=== PATIENT | female | born 1935 | race Caucasian/White ===

== ENCOUNTER → 2016-05-31 | Outpatient (CLI) | payer OTHER | LOC: FCPNEURO 23:20 | PROVIDERS: ATTEND Student in an Organized Health Care Education/Training Program | DX: G47.33 Obstructive sleep apnea (adult) (pediatric) (principal) ==

== ENCOUNTER → 2017-06-19 | Outpatient (CLI) | payer OTHER | LOC: BMCIMAGING 10:20 | PROVIDERS: ATTEND Internal Medicine | DX: R05 Cough (principal) ==

== ENCOUNTER 2018-05-24 15:29 | Observation (INO) | payer OTHER ==
--- NOTE | 2018-05-24 16:41 | EDPHY ---
H & P Time Seen by Provider: 05/24/18 16:40 HPI/ROS: CHIEF COMPLAINT: Abdominal bloating and skin rash HISTORY OF PRESENT ILLNESS: Patient had symptoms with digestive issues and diarrhea for the past 20 years. She did see her naturopathic doctor treated some of her symptoms of the ribs this past February and March and she felt well until May 12 when she had abdominal bloating and swelling and fatigue. A new year's Dana she had a single episode of nausea vomiting very fatigued and then saw her vp analytics this past Sunday for decreased appetite and worse abdominal bloating and a week of dark urine. She presents today because she called her doctor about the symptoms and they asked her to come to the emergency department. Her bloating is associated with constipation, the skin rash is very itchy and she has had to take Tylenol couple of times in the past week but only 1 pill at a time. Symptoms moderate. REVIEW OF SYSTEMS: Eye: no change in vision ENT: Eye surgery for her tear duct this last week on the of general anesthesia Cardiac: no chest pain or syncope Pulmonary: no cough or SOB Abdomen: HPI Musculoskeletal: no back pain Skin: HPI Neuro: no headache Constitutional: no fever : Dark urine but no hematuria or dysuria A comprehensive 10 point review of systems is otherwise negative aside from elements mentioned in the history of present illness. PAST MEDICAL HISTORY: Includes cardiac ablation in 2013, sciatica with lumbar laminectomy, left hip replacement, hypertension Social history: Occasional alcohol General Appearance: Alert and conversant, cooperative. Eyes: Icteric. ENT, Mouth: Normal mucous membranes. Respiratory: Normal respiratory effort, breath sounds equal, lungs are clear to auscultation. Cardiovascular: Regular rate and rhythm. Gastrointestinal: Epigastric and right upper quadrant tenderness. Neurological: Alert, face symmetric, normal motor and sensory in extremities. Skin: Jaundiced. Musculoskeletal: No peripheral edema. Psychiatric: Not agitated. Emergency Department course/MDM: Patient presents with jaundice and icterus. Plan for labs to include LFTs and protime and Tylenol, CT scanning abdomen and pelvis discussed and consented. 1826: normal CT abdomen pelvis per Thom. 1899: results discussed with patient and Dr. Matthews. Admission recommended for further workup of jaundice with possible biliary obstruction, patient consents. Ultrasound in progress, hospitalist will arrange GI consultation. Smoking Status: Never smoked Constitutional: Initial Vital Signs Temperature (C) 36.7 C 05/24/18 15:43 Heart Rate 73 05/24/18 15:43 Respiratory Rate 16 05/24/18 15:43 Blood Pressure 141/95 H 05/24/18 15:43 O2 Sat (%) 97 05/24/18 15:43 O2 Delivery Mode Room Air Allergies/Adverse Reactions: gluten Allergy (Verified 05/24/18 15:42) peanut Allergy (Verified 05/24/18 15:42) soy Allergy (Verified 05/24/18 15:42) Home Medications: Medication Instructions Recorded Herbals/Supplements -Info Only 1 each PO AD 08/03/13 Aspirin EC [Aspirin EC 325 mg (*)] 325 mg PO DAILY PRN 05/24/18 Ibuprofen [Motrin (*)] 1 - 2 tab PO PRN PRN 05/24/18 Medical Decision Making - Diagnostics Imaging Results: Imaging Impressions Abdomen CT 05/24/18 17:42 Impression: 1. No evidence for a mass obstructing the biliary system or common bile duct. Left and right hepatic cysts. 2. Possible nonspecific wall thickening in the antrum of the stomach. Consider endoscopy for further evaluation, if clinically warranted 3. 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 Tarlov cysts in the sacrum. 4. Other chronic findings, as above. Results called and discussed with Aris Llanos M.D., on May 24, 2018 at 1835. E:amm Abdomen Ultrasound 05/24/18 18:54 Impression: Question subtle adenomyomatosis of the gallbladder. No evidence for cholecystitis or cholelithiasis. No evidence for intrahepatic or extrahepatic biliary ductal dilatation. Hepatic cysts. Results were called and discussed with Dr. Aris Llanos on 05/24/2018, 19:52. Imaging: Discussed imaging studies w/ yardage caller Radiologist Differential Diagnosis: Differential considered including but not limited to pancreatitis, cholangitis, pancreatic tumor, common duct stone - Data Points Laboratory Results: Laboratory Results 05/24/18 17:10 05/24/18 17:10 05/24/18 05/24/18 05/24/18 17:36 17:10 17:10 WBC RBC Hgb POC Hgb 15.6 gm/dL gm/dL (12.6-16.3) Hct POC Hct 46 % % (38-47) MCV MCH MCHC RDW Plt Count MPV Neut % (Auto) Lymph % (Auto) Clare % (Auto) Eos % (Auto) Baso % (Auto) Nucleat RBC Rel Count Absolute Neuts (auto) Absolute Lymphs (auto) Absolute Monos (auto) Absolute Eos (auto) Absolute Basos (auto) Absolute Nucleated RBC Immature Gran % Immature Gran # PT INR POC Sodium 142 mEq/L mEq/L (135-145) Sodium 137 mEq/L mEq/L REJ (135-145) POC Potassium 4.0 mEq/L mEq/L (3.3-5.0) Potassium 4.0 mEq/L mEq/L Not Reported (3.5-5.2) POC Chloride 105 mEq/L mEq/L (97-110) Chloride 105 mEq/L mEq/L Not Reported (97-110) Carbon Dioxide 25 mEq/l mEq/l Not Reported (22-31) Anion Gap 7 mEq/L mEq/L Not Reported (6-14) POC BUN 14 mg/dL mg/dL (7-23) BUN 14 mg/dL mg/dL Not Reported (7-23) Creatinine 0.7 mg/dL mg/dL Not Reported (0.6-1.0) POC Creatinine 0.7 mg/dL mg/dL (0.6-1.0) Estimated GFR > 60 Not Reported Glucose 98 mg/dL mg/dL Not Reported (70-100) POC Glucose 97 mg/dL mg/dL (70-100) Calcium 9.6 mg/dL mg/dL Not Reported (8.5-10.4) Total Bilirubin 12.2 mg/dL H mg/dL Not Reported (0.1-1.4) Conjugated Bilirubin 10.3 mg/dL H mg/dL Not Reported (0.0-0.5) Unconjugated Bilirubin 1.9 mg/dL H mg/dL Not Reported (0.0-1.1) Icterus Index 7 AST 117 IU/L H IU/L Not Reported (14-46) ALT 209 IU/L H IU/L Not Reported (9-52) Alkaline Phosphatase 493 IU/L H IU/L Not Reported (38-126) Total Protein 7.5 g/dL g/dL Not Reported (6.3-8.2) Albumin 4.1 g/dL g/dL Not Reported (3.5-5.0) Lipase 125 IU/L IU/L Not Reported (23-300) Urine Color Urine Appearance Urine pH Ur Specific [place] Urine Protein Urine Ketones Urine Blood Urine Nitrate Urine Bilirubin Urine Urobilinogen Ur Leukocyte Esterase Urine Glucose Acetaminophen < 10 mcg/mL L mcg/mL Not Reported (-) 05/24/18 05/24/18 05/24/18 17:10 17:10 15:46 WBC 5.81 10^3/uL 10^3/uL (3.80-9.50) RBC 5.02 10^6/uL 10^6/uL (4.18-5.33) Hgb 13.5 g/dL g/dL (12.6-16.3) POC Hgb Hct 39.6 % % (38.0-47.0) POC Hct MCV 78.9 fL L fL (81.5-99.8) MCH 26.9 pg L pg (27.9-34.1) MCHC 34.1 g/dL g/dL (32.4-36.7) RDW 16.7 % H % (11.5-15.2) Plt Count 298 10^3/uL 10^3/uL (150-400) MPV 11.9 fL H fL (8.7-11.7) Neut % (Auto) 52.7 % % (39.3-74.2) Lymph % (Auto) 22.7 % % (15.0-45.0) Clare % (Auto) 16.2 % H % (4.5-13.0) Eos % (Auto) 6.4 % % (0.6-7.6) Baso % (Auto) 1.5 % % (0.3-1.7) Nucleat RBC Rel Count 0.0 % % (0.0-0.2) Absolute Neuts (auto) 3.06 10^3/uL 10^3/uL (1.70-6.50) Absolute Lymphs (auto) 1.32 10^3/uL 10^3/uL (1.00-3.00) Absolute Monos (auto) 0.94 10^3/uL H 10^3/uL (0.30-0.80) Absolute Eos (auto) 0.37 10^3/uL 10^3/uL (0.03-0.40) Absolute Basos (auto) 0.09 10^3/uL 10^3/uL (0.02-0.10) Absolute Nucleated RBC 0.00 10^3/uL 10^3/uL (0-0.01) Immature Gran % 0.5 % % (0.0-1.1) Immature Gran # 0.03 10^3/uL 10^3/uL (0.00-0.10) PT 13.4 SEC SEC (12.0-15.0) INR 1.00 (0.83-1.16) POC Sodium Sodium POC Potassium Potassium POC Chloride Chloride Carbon Dioxide Anion Gap POC BUN BUN Creatinine POC Creatinine Estimated GFR Glucose POC Glucose Calcium Total Bilirubin Conjugated Bilirubin Unconjugated Bilirubin Icterus Index AST ALT Alkaline Phosphatase Total Protein Albumin Lipase Urine Color AKILA Urine Appearance CLEAR Urine pH 5.0 (5.0-7.5) Ur Specific [place] 1.011 (1.002-1.030) Urine Protein NEGATIVE (NEGATIVE) Urine Ketones NEGATIVE (NEGATIVE) Urine Blood NEGATIVE (NEGATIVE) Urine Nitrate NEGATIVE (NEGATIVE) Urine Bilirubin NEGATIVE (NEGATIVE) Urine Urobilinogen 2.0 EU H EU (0.2-1.0) Ur Leukocyte Esterase NEGATIVE (NEGATIVE) Urine Glucose NEGATIVE (NEGATIVE) Acetaminophen Point of Care Test Results: Chemistry 05/24/18 17:36 POC Sodium 142 mEq/L mEq/L (135-145) POC Potassium 4.0 mEq/L mEq/L (3.3-5.0) POC Chloride 105 mEq/L mEq/L (97-110) POC BUN 14 mg/dL mg/dL (7-23) POC Creatinine 0.7 mg/dL mg/dL (0.6-1.0) POC Glucose 97 mg/dL mg/dL (70-100) ISTAT H&H 05/24/18 17:36 POC Hgb 15.6 gm/dL gm/dL (12.6-16.3) POC Hct 46 % % (38-47) Departure - Departure Disposition: [facility] Clinical Impression: Jaundice Condition: Fair
[2018-05-24 17:38] LABS: PLATELET COUNT 298 10^3/uL (150-400)
[2018-05-24] MEDS ORDERED: IOPAMIDOL (ISOVUE 370) 100 ML BTL IV ONE (17:52)
[2018-05-24 17:54] LABS: PROTIME(PATIENT) 13.4 SEC (12.0-15.0)
[2018-05-24] MEDS ORDERED: HYDROmorphONE/DILAUDID 1 MG/ML INJ IVP PRN (19:23)
[2018-05-24] MEDS ORDERED: OXYCODONE/APAP 5/325 TAB PO PRN (19:23)
[2018-05-24] MEDS ORDERED: ACETAMINOPHEN 325 MG TAB PO PRN (19:23)
[2018-05-24] MEDS ORDERED: ONDANSETRON 4 MG/2 ML VIAL IVP PRN (19:23)
[2018-05-24] MEDS ORDERED: ONDANSETRON DISINTEGRATING 4 MG TAB PO PRN (19:23)
--- NOTE | 2018-05-24 20:47 | PDGENHP ---
History and Physical - Chief Complaint Jaundice - History of Present Illness Jamee Patiño is a 83 yo F with a PMHx of digestive issues who follows with a naturopathic doctor who presents to [facility] for jaundice. Her is at the bedside who has helped with history taking. She reports that around JAQUELIN she started having decreased appetite, abdominal bloating, and one episode of n/v. She also notes she started having dark urine at that time. Her symptoms persisted which prompted ED visit this afternoon. She also noted diffuse pruritis. She does report occasional Tylenol use, not 1 tablet at a time. History Information - Allergies/Home Medication List Allergies/Adverse Reactions: gluten Allergy (Verified 05/24/18 15:42) peanut Allergy (Verified 05/24/18 15:42) soy Allergy (Verified 05/24/18 15:42) I have personally reviewed and updated: family history, medical history, social history, surgical history - Past Medical History no pertinent PMH - Surgical History Reports: no pertinent surgical hx - Family History Positive for: non-pertinent - Social History Smoking Status: Never smoked Review of Systems Review of Systems: ROS: 10pt was reviewed & negative except for what was stated in HPI & below Physical Exam Physical Exam: Temp Pulse Resp BP Pulse Ox 37.0 C 69 12 150/85 H 94 05/24/18 20:00 05/24/18 20:00 05/24/18 20:00 05/24/18 20:00 05/24/18 20:00 Constitutional: no apparent distress Eyes: PERRL, icteric sclera Ears, Nose, Mouth, Throat: moist mucous membranes Cardiovascular: regular rate and rhythym Respiratory: no respiratory distress Gastrointestinal: soft, non-tender abdomen Skin: warm Neurologic: AAOx3 Psychiatric: interacting appropriately Lab Data & Imaging Review 05/25/18 10:50 05/25/18 05:31 WBC 5.81 10^3/uL (3.80-9.50) 05/24/18 17:10 RBC 5.02 10^6/uL (4.18-5.33) 05/24/18 17:10 Hgb 13.5 g/dL (12.6-16.3) 05/24/18 17:10 POC Hgb 15.6 gm/dL (12.6-16.3) 05/24/18 17:36 Hct 39.6 % (38.0-47.0) 05/24/18 17:10 POC Hct 46 % (38-47) 05/24/18 17:36 MCV 78.9 fL (81.5-99.8) L 05/24/18 17:10 MCH 26.9 pg (27.9-34.1) L 05/24/18 17:10 MCHC 34.1 g/dL (32.4-36.7) 05/24/18 17:10 RDW 16.7 % (11.5-15.2) H 05/24/18 17:10 Plt Count 298 10^3/uL (150-400) 05/24/18 17:10 MPV 11.9 fL (8.7-11.7) H 05/24/18 17:10 Neut % (Auto) 52.7 % (39.3-74.2) 05/24/18 17:10 Lymph % (Auto) 22.7 % (15.0-45.0) 05/24/18 17:10 Crisp % (Auto) 16.2 % (4.5-13.0) H 05/24/18 17:10 Eos % (Auto) 6.4 % (0.6-7.6) 05/24/18 17:10 Baso % (Auto) 1.5 % (0.3-1.7) 05/24/18 17:10 Nucleat RBC Rel Count 0.0 % (0.0-0.2) 05/24/18 17:10 Absolute Neuts (auto) 3.06 10^3/uL (1.70-6.50) 05/24/18 17:10 Absolute Lymphs (auto) 1.32 10^3/uL (1.00-3.00) 05/24/18 17:10 Absolute Monos (auto) 0.94 10^3/uL (0.30-0.80) H 05/24/18 17:10 Absolute Eos (auto) 0.37 10^3/uL (0.03-0.40) 05/24/18 17:10 Absolute Basos (auto) 0.09 10^3/uL (0.02-0.10) 05/24/18 17:10 Absolute Nucleated RBC 0.00 10^3/uL (0-0.01) 05/24/18 17:10 Immature Gran % 0.5 % (0.0-1.1) 05/24/18 17:10 Immature Gran # 0.03 10^3/uL (0.00-0.10) 05/24/18 17:10 PT 13.4 SEC (12.0-15.0) 05/24/18 17:10 INR 1.00 (0.83-1.16) 05/24/18 17:10 POC Sodium 142 mEq/L (135-145) 05/24/18 17:36 Sodium 137 mEq/L (135-145) 05/24/18 17:10 POC Potassium 4.0 mEq/L (3.3-5.0) 05/24/18 17:36 Potassium 4.0 mEq/L (3.5-5.2) 05/24/18 17:10 POC Chloride 105 mEq/L (97-110) 05/24/18 17:36 Chloride 105 mEq/L (97-110) 05/24/18 17:10 Carbon Dioxide 25 mEq/l (22-31) 05/24/18 17:10 Anion Gap 7 mEq/L (6-14) 05/24/18 17:10 POC BUN 14 mg/dL (7-23) 05/24/18 17:36 BUN 14 mg/dL (7-23) 05/24/18 17:10 Creatinine 0.7 mg/dL (0.6-1.0) 05/24/18 17:10 POC Creatinine 0.7 mg/dL (0.6-1.0) 05/24/18 17:36 Estimated GFR > 60 05/24/18 17:10 Glucose 98 mg/dL (70-100) 05/24/18 17:10 POC Glucose 97 mg/dL (70-100) 05/24/18 17:36 Calcium 9.6 mg/dL (8.5-10.4) 05/24/18 17:10 Total Bilirubin 12.2 mg/dL (0.1-1.4) H 05/24/18 17:10 Conjugated Bilirubin 10.3 mg/dL (0.0-0.5) H 05/24/18 17:10 Unconjugated Bilirubin 1.9 mg/dL (0.0-1.1) H 05/24/18 17:10 Icterus Index 7 05/24/18 17:10 AST 117 IU/L (14-46) H 05/24/18 17:10 ALT 209 IU/L (9-52) H 05/24/18 17:10 Alkaline Phosphatase 493 IU/L (38-126) H 05/24/18 17:10 Total Protein 7.5 g/dL (6.3-8.2) 05/24/18 17:10 Albumin 4.1 g/dL (3.5-5.0) 05/24/18 17:10 Lipase 125 IU/L (23-300) 05/24/18 17:10 Urine Color AKILA 05/24/18 15:46 Urine Appearance CLEAR 05/24/18 15:46 Urine pH 5.0 (5.0-7.5) 05/24/18 15:46 Ur Specific [place] 1.011 (1.002-1.030) 05/24/18 15:46 Urine Protein NEGATIVE (NEGATIVE) 05/24/18 15:46 Urine Ketones NEGATIVE (NEGATIVE) 05/24/18 15:46 Urine Blood NEGATIVE (NEGATIVE) 05/24/18 15:46 Urine Nitrate NEGATIVE (NEGATIVE) 05/24/18 15:46 Urine Bilirubin NEGATIVE (NEGATIVE) 05/24/18 15:46 Urine Urobilinogen 2.0 EU (0.2-1.0) H 05/24/18 15:46 Ur Leukocyte Esterase NEGATIVE (NEGATIVE) 05/24/18 15:46 Urine Glucose NEGATIVE (NEGATIVE) 05/24/18 15:46 Acetaminophen < 10 mcg/mL (10-30) L 05/24/18 17:10 Assessment & Plan Assessment: Painless Jaundice - Reoprts yellow coloring of skin, icteric slcera recently - T Bili on admission 12.2, D Bili 10.3, increased AST/ALT - No hx of liver/galbladder abnormalities - Abd CT shows no acute abnormality - Abd U/s shows question subtle adenomyomatosis of the galbladder, no evidence of cholecystitis or cholelithiasis, no evidence of intrahepatic or extrahepatic biliary ductal dilation - Consider pursuing MRCP in the AM although no evidence of biliary ductal dilation - Consider GI consult in the AM for further evaluation - Continue to monitor CMP Transaminitis - AST 117, ALT 209 on admission, in setting of conjugated hyperbilirubinemia - Imaging as above - Unclear etiology at this time - Continue to monitor FEN: IVF Code: FULL Dispo: Admit to Observation
[2018-05-24] MEDS ORDERED: ASPIRIN EC 325 MG TAB PO PRN (20:53)
[2018-05-24] MEDS ORDERED: IBUPROFEN 200 MG TAB PO PRN (20:53)
[2018-05-24] MEDS: NS 1,000 ML IV SCH (23:46)
[2018-05-25 06:11] LABS: PLATELET COUNT 237 10^3/uL (150-400)
[2018-05-25] MEDS: NS 1,000 ML IV SCH (08:36)
[2018-05-25] MEDS ORDERED: ENOXAPARIN 40 MG/0.4 ML SYR SC SCH (09:00)
--- NOTE | 2018-05-25 11:21 | ASMTCMCOM ---
CM Note CM Note Notes: Patient admitted w jaundice. Although workup has been relatively normal, she may benefit from GI consult and/or MRCP. Patient is normally independent, lives with . No CM needs identified; however, we are available if this changes. Date Signed: 05/25/2018 11:21 AM Electronically Signed By:Margie Loredo RN
[2018-05-25 13:52] VITALS: BP 156/89
--- NOTE | 2018-05-25 15:38 | ASDISCHSUM ---
Discharge Information Plan Status:Home with No Needs Medically Cleared to Leave: Discharge Date:05/25/2018 03:15 PM CM D/C Disposition: ADT D/C Disposition:Home, Routine, Self-Care Projected Discharge Date:05/25/2018 03:15 PM Transportation at D/C: Discharge Delay Reason: Follow-Up Date:05/25/2018 03:15 PM Discharge Slot: Final Diagnosis: Placement Information Patient Contact Information Contact Name:MARCE Relationship:Life Partner Address:[address] Work Phone: City:[place] [facility] Phone: State/Zip Code:[place] [address] Email: Financial Information Financial Class:Medicare Advantage Plans Primary Plan Desc:[facility] ADVANTAGE PLANS Primary Plan Number:[id number] Secondary Plan Desc: Secondary Plan Number: Assessment Information [facility] CM Progress Note CM Note CM Note Notes: Patient admitted w jaundice. Although workup has been relatively normal, she may benefit from GI consult and/or MRCP. Patient is normally independent, lives with . No CM needs identified; however, we are available if this changes. Date Signed: 05/25/2018 11:21 AM Electronically Signed By:Margie Loredo RN Intervention Information
--- NOTE | 2018-05-25 15:39 | ASMTLACE ---
LACE Length of stay for Answers: 1 day current admission Acuity / Level of Answers: No Care: Did the patient have an inpatient admission? Comorbidities - select Answers: Other Notes: HTN all that apply # of Emergency department Answers: 1-2 visits in the last 6 months Score: 3 Date Signed: 05/25/2018 03:38 PM Electronically Signed By:Margie Loredo RN
--- NOTE | 2018-05-25 15:41 | ASMTDCNOTE ---
Case Management Discharge Discharge Order Complete? Answers: Yes Patient to Obtain Answers: Independently Medications Transportation Arranged Answers: Family/Friends Family Notified Answers: Yes Discharge Comments Notes: Patient discharged home with family. No needs. transported her home. Date Signed: 05/25/2018 03:40 PM Electronically Signed By:Margie Loredo RN
--- NOTE | 2018-05-25 19:43 | GCON ---
REFERRING PHYSICIAN: Nani Estrada MD CHIEF COMPLAINT: An 83-year-old woman with jaundice. HISTORY OF PRESENT ILLNESS: I have been asked to see this very pleasant 83-year -old woman in consultation by Dr. Nani Estrada for new-onset jaundice. The patient reported that she started feeling ill in April. She was having some gas and bloating and some GI upset. She had no fevers. She had significant fatigue. She went to her alternative medicine practitioner and was diagnosed with a virus. She was given Cypriot herbs. She reports she was given Cold Quell and Kold Janis. She took these supplements for about 5-6 days. She also reports several weeks ago, she had surgery for a tear duct. This was done at an outpatient facility in [place]. She had general anesthesia per her report. For the last couple of weeks, she has been noticing dark urine, and this week, she noticed a rash on her upper extremities and trunk of her body. She called into her primary care physician yesterday when she noted she was starting to develop jaundice. Her primary care physician recommended that she go to the emergency department. She has been having some pruritus associated with her rash. She denies any recent antibiotic use. In the emergency department, she was noted to have abnormal liver function tests. She had a total bilirubin of 12.2 with an AST of 117 and ALT of 209 with an alkaline phosphatase of 493. CBC did reveal some microcytic anemia with MCV of 75.9 with a hematocrit of 34.1 and hemoglobin 11.7. Serology had been sent but is pending. Serology for acute hepatitis A and B are pending. Also, hepatitis C antibody is pending. She did have imaging. She had a right upper quadrant ultrasound, which showed some subtle adenomatosis of the gallbladder. There was no evidence of acute cholecystitis or cholelithiasis. There was also no evidence of intrahepatic or extrahepatic ductal dilatation. Gallbladder wall is 2 mm. Common bile duct was [address] scan was also performed. There was no evidence of liver lesions. There was no evidence of pancreatic mass. There was no evidence of biliary obstruction. I was asked to see the patient for further evaluation. She denies any use of Tylenol. PAST MEDICAL HISTORY: Remarkable for coronary artery disease. No prior history of [place] or cardiac stenting; however, she does have coronary plaques. She also has a history of SVT. Has had previous cardiac ablation. Personal history of colon polyps. Last colonoscopy was 6 years ago. She has had a previous appendectomy at age 14, right total knee replacement and left total hip replacement. She has also had back surgery for disk disease. MEDICATIONS: None prescribed prior to admission; however, she has been taking multiple supplements, including multiple herbal supplements and recent Cypriot herbs. SOCIAL HISTORY: She is a nonsmoker and nondrinker. She lives with her . Very active. FAMILY HISTORY: Negative as pertains to CC. NKDA REVIEW OF SYSTEMS: Negative in 10 systems other than mentioned in HPI. PHYSICAL EXAM: VITAL SIGNS: 120/75, heart rate 63, respiratory rate 16, 95% sat on room air, 36.8. GENERAL: A very pleasant woman in no acute distress. HEENT: Normocephalic, atraumatic. EOMI. There is scleral icterus. No cervical adenopathy. No thyromegaly. Mucous membranes moist. LUNGS: Clear. CARDIAC: Normal S1, S2 without murmur. ABDOMEN: Soft. Normal bowel sounds. Nontender. No hepatosplenomegaly. EXTREMITIES: Without clubbing, cyanosis, edema. SKIN: Remarkable for a maculopapular rash on the trunk and abdomen and upper extremities, as well as the back. Her skin is also noted to be jaundiced. NEURO: Nonfocal. PSYCH: Is alert and oriented x3 with normal affect. LABORATORY DATA: Hemoglobin 11.3, hematocrit 34.4, MCV 75.9. Serum chemistries : Serum sodium of 141, potassium 4.0, chloride 113, CO2 of 22, BUN of 11, total bilirubin of 11.2, conjugated bilirubin 9.2, AST of 87, ALT of 168, alkaline phosphatase of 410. PT of 13.4 with an INR of 1.0. Acetaminophen was less than 10. IMPRESSION: An 83-year-old woman with jaundice, macular papular rash. Clinical presentation consistent with either drug induced or toxic liver injury from recent Cypriot herbs and supplements or viral etiology. Also rule out autoimmune process or autoimmune hepatitis. So, she has also been noticed to be slightly anemic with an MCV of 75. She has had a previous colonoscopy 6 years ago. RECOMMENDATIONS: 1. Follow clinically. Advance diet as tolerated to regular diet. 2. Labs to include hepatitis serology for acute hepatitis A and B, also obtain autoimmune markers for autoimmune hepatitis, FUNMILAYO, anti-smooth muscle antibody, also AMA (antimitochondrial antibody) for PBC. 3. Discontinue and avoid any supplements. 4. She has slight microcytic anemia. We will check an iron, TIBC, and ferritin. 5. She has been noted to have a nonspecific mild thickening of the antrum. Consider upper endoscopy as an outpatient. If iron deficient, would also do colonoscopy, as well as an outpatient. The patient potentially will be discharged with close followup with hepatology, Dr. Villa, in our practice. We will follow with you. Thank for allowing me to participate in the care of this patient. /[id number]/MODL MTDD
--- NOTE | 2018-05-26 05:06 | GDS ---
DISCHARGE DIAGNOSES: 1. Elevated liver function tests, probable drug reaction versus viral. 2. Thickened gastric antrum on CAT scan. Outpatient EGD recommended. 3. Diffuse rash, suspect drug rash. 4. Microcytic anemia. HISTORY: The patient is an 83-year-old female, who sees a naturopathic doctor and takes multiple her bal supplements. Around [place] , she developed dark urine, abdominal bloating, a rash, and pr uritus. Symptoms became severe, and she presented to the emergency room. She was found have a bilir ubin of 12, increased AST and ALT. Abdominal ultrasound and abdominal CT scan did not show any obstr uction. Dr. Ontiveros was consulted from Gastroenterology. He thinks this is probably a reaction to o ne of her herbal medications or possibly a viral infection. She does have a significant rash that st arted about the same time, that looks like a possible drug rash. This is very itchy. The patient is very anxious for discharge. Her LFTs are improving. She is tolerating p.o. She will follow up [facility] with Dr. Ontiveros. Serologies are pending at discharge, including viral hepatitis, Vivi-Cool, FUNMILAYO, antimitochondrial antismooth muscle antibodies. For these, she will follow up with Dr. Ontiveros . Her abdominal CT scan incidentally saw thickening of her gastric antrum of her stomach. EGD is in dicated, but per Dr. Ontiveros can be pursued as an outpatient. She was incidentally noted to have a m icrocytic anemia, and he may also pursue colonoscopy as an outpatient as well. The rash is very itchy, but I think she can use Benadryl without any adverse hepatic effects. I also recommended she stay away from Tylenol, Motrin, and aspirin for pain control, which is what she afshin montoya uses. She recently had an eye surgery that is also causing her some discomfort. I prescribed her tramadol as needed. She was advised regarding discontinuation of all herbal supplements. She fo llows very closely with her naturopathic doctor. Plans to have him review all the supplements he has prescribed for possible hepatic toxicity. She will follow up closely with her primary care doctor, Dr. Cartwright. DISCHARGE MEDICATIONS: Please see computerized record for full detailed list. New medication: Tramadol 50 mg p.o. q.4 hours as needed for pain. ADDITIONAL DISCHARGE INSTRUCTIONS: 1. OTC Benadryl every 4 hours as needed for itching. 2. Avoid Tylenol, aspirin, and ibuprofen until liver issue has resolved. 3. Ask your naturopathic doctor to review supplements for liver toxicity. 4. Outpatient EGD and colonoscopy recommended. Follow up with Dr. Ontiveros and Dr. Villa at [facility]. Greater than 30 minutes' time spent arranging this discharge. Patient was seen and examined by me on the day of discharge. /[id number]/MODL
[2018-05-27 02:51] LABS: HEPATITIS A ANTIBODY IGM (BCH) NEGATIVE (NEGATIVE); HEPATITIS B CORE AB IGM NEGATIVE (NEGATIVE); HEPATITIS B SURFACE ANTIGEN NEGATIVE (NEGATIVE); HEPATITIS C ANTIBODY TOTAL NEGATIVE (NEGATIVE)
== END 2018-05-25 15:15 | disposition home or self-care (01) ==
LOC: INTOOBSV 19:02 → F3E 19:58
PROVIDERS: ADMIT Internal Medicine; ATTEND Internal Medicine
DX: R17 Unspecified jaundice (principal); R21 Rash and other nonspecific skin eruption; R93.3 Abnormal findings on diagnostic imaging of other parts of digestive tract; D64.9 Anemia, unspecified; Z79.899 Other long term (current) drug therapy; I25.10 Atherosclerotic heart disease of native coronary artery without angina pectoris; Z96.642 Presence of left artificial hip joint; Z86.010 Personal history of colon polyps; Z96.651 Presence of right artificial knee joint
CPT/HCPCS: 74177; 76705; 97161; 99285; G0378; Q9967; 82435-PO; 82565-PO; 82947-PO; 84132-PO; 84295-PO; 84520-PO; 85014-ER; 86255-90; 86664-90; 86665-90; G0472; G0480

== ENCOUNTER → 2018-05-30 | Outpatient (CLI) | payer OTHER | LOC: FIMAGING 17:32 | PROVIDERS: ATTEND Internal Medicine | DX: K76.89 Other specified diseases of liver (principal) ==

== ENCOUNTER 2018-06-02 11:25 | Emergency (ER) | payer OTHER ==
[2018-06-02] MEDS ORDERED: hydrOXYzine HCL 25 MG TAB PO ONE (12:30)
[2018-06-02 13:28] LABS: PLATELET COUNT 275 10^3/uL (150-400)
[2018-06-02 13:33] LABS: INR 1.04 (0.83-1.16); PROTIME(PATIENT) 13.8 SEC (12.0-15.0)
--- NOTE | 2018-06-02 14:51 | EDPHY ---
General Time Seen by Provider: 06/02/18 11:45 Narrative: CLINICAL IMPRESSION: Hyperbilirubinemia, transaminitis, jaundice ASSESSMENT/PLAN: 83-year-old female presents to the emergency department with complaints of persistent jaundice, worsening pruritic rash to back and trunk and weakness. Patient was admitted last week for similar symptoms, underwent extensive evaluation including lab evaluation, hepatitis and autoimmune hepatitis panels, coag studies, abdominal CT, ultrasound and MRI, as well as GI consultation. It was felt that patient's Sudanese herbs and cbwr-[id number] supplements were potentially causing her symptoms and she has since stopped those. Patient has a diffuse maculopapular, purpura rash to the back and trunk likely secondary to cholestasis. Itching improved with hydroxyzine. No signs of secondary infection. Patient continues to have worsening hyperbilirubinemia with a total bilirubin today of 21. Coag studies are normal, anemia is slightly improved. Review of last labs show normal hepatitis A, B and C panels, a positive EBV IgM , and a positive H pylori IgG. She had a normal abdominal MRI 2 days ago. She has an appointment with hepatology on the of this month. Imaging studies have shown no evidence of biliary tree obstruction, cholecystitis, choledocholithiasis or pancreatic mass. I discussed patient's case with Dr Dick who did not feel patient required any additional emergent labs or imaging today. I had a long discussion with patient and her son, reviewed all of her lab work and imaging studies and reassured her to follow up with hepatology. I gave her prescription for hydroxyzine for symptomatic care of itching. Warning signs return to ED sooner outlined in person and discharge papers. DIFFERENTIAL DX: Differential diagnosis includes but not limited to viral hepatitis, autoimmune hepatitis, biliary tree obstruction, cholestasis, ITP, severe anemia ED PROCEDURES: See lab and/or imaging results below ED COURSE: I met with the patient and her son after I had all lab values back. I also discussed her case at length with who did not feel the patient required any additional emergent imaging or lab evaluation. She felt patient could be treated with hydroxyzine for itching and follow up as directed with hepatology. I reviewed all patient's lab results with her and reassured her that all imaging studies have been somewhat unremarkable. We also reviewed her consultation with [facility] of the [facility]. I encouraged her to keep her appointment with GI and follow up with primary care as she has previously scheduled. Itching was improved with hydroxyzine. CHIEF COMPLAINT: Itchy rash , persistent jaundice HPI: 83-year-old otherwise healthy female presents to the emergency department with complaints of a persistent and worsening itchy rash to the back and trunk associated with persistent jaundice. Patient was admitted to our hospital last week, discharged on the after she was found to have hyperbilirubinemia and transaminitis. She had a thorough evaluation including normal abdominal CT, normal abdominal ultrasound, consultation with Gastroenterology and lab work. She was found to have a elevated total bilirubin of 11.2, transaminitis, normal coags, mild anemia. It was felt by Gastroenterology that she was suffering from an adverse reaction to homeopathic agents and Sudanese herbs. She has since stopped taking these. She reports she did have a rash while hospitalized but over the last several days this has become worse, significantly itchy and burning. No reported fevers or chills. She has reported some fatigue. She had a normal abdominal MRI 2 days ago and had coag panels 2 days ago and was told these were normal. She has an appointment with Dr. Villa on the of this month. Patient is understandably distraught about her jaundice and unclear what is causing this. PAST MEDICAL HISTORY: None reported See nurse/triage notes for additional history if applicable Pertinent Past Surgical History: None reported Family History: Noncontributory Social History: Nonsmoker, otherwise healthy, prefers to practice homeopathic medical treatment. REVIEW OF SYSTEMS: All other systems negative Constitutional: No fever, no chills, appetite change. Eyes: No discharge, vision change ENT: No sore throat, congestion, ear pain. Cardiovascular: No chest pain, no palpitations. Respiratory: No cough, no shortness of breath. Gastrointestinal: No abdominal pain, no vomiting, positive for nausea, denies diarrhea. Genitourinary: No hematuria, dysuria, flank pain, pelvic pain Musculoskeletal: No back pain, joint swelling, joint pain, myalgias. Skin: Positive for rashes, positive for color change. Neurological: No headache, dizziness, positive for weakness. PHYSICAL EXAM: General Appearance: Alert, oriented, appropriate, cooperative, jaundiced appearing, thin, NAD, well hydrated, non-toxic appearing, VSS, no hypoxia. HEENT: TMs are clear bilaterally no perforation or FB, no injection, no evidence of serous or mucopurulent otitis. Oropharynx clear is no erythema or exudates, no tonsillar hypertrophy or asymmetry. Dentition without abnormality. Eyes: PERRLA, no acute vision change, nystagmus, swelling, discharge, pain or photosensitivity. Conjunctiva pale, scleral icterus noted Neck: Supple, nontender, no lymphadenopathy, no midline pain, FROM, no meningismus. Respiratory: There are no retractions, lungs are clear to auscultation. Cardiac: Regular rate and rhythm, no murmurs or gallops. Gastrointestinal: Abdomen is soft, nontender, bowel sounds normal, no masses/ hernia, no rigidity, guarding or focal peritoneal findings. Neurological: [ Alert and oriented x 3, CN 2-12 grossly intact Skin: Diffuse, maculopapular, purpura noted to back, trunk and upper arms. No blisters or open wounds. No significant rash to the leg. Diffuse jaundice appreciated. Musculoskeletal: Extremities are symmetrical, full range of motion, no tenderness, deformity, swelling, or erythema. Psychiatric: Patient is oriented X 3, there is no agitation. MEDICAL DECISION MAKING: Patient was seen independently. Secondary supervising physician at time of evaluation was Dr. Llanos . Diagnosis: Hyperbilirubinemia, transaminitis. New, requires workup Summary: See Assessment and Plan for summary of ED visit Clinical lab tests: ordered / reviewed. Independent visualization of images, tracing, or specimens: Reviewed. Decision to obtain medical records or history from someone other than the patient: No Review / Summarize previous medical records: Reviewed recent ED, air quality consultant, and admission notes as well as lab and imaging studies Discussed patient with another provider: Dr. Llanos, Dr. Dick Patient Progress: Improved. - History Smoking Status: Never smoked - Objective Vital Signs: Initial Vital Signs Temperature (C) 36.7 C 06/02/18 11:29 Heart Rate 64 06/02/18 11:29 Respiratory Rate 18 06/02/18 11:29 Blood Pressure 142/79 H 06/02/18 11:29 O2 Sat (%) 97 06/02/18 11:29 O2 Delivery Mode Room Air Allergies/Adverse Reactions: gluten Allergy (Verified 06/02/18 11:28) peanut Allergy (Verified 06/02/18 11:28) soy Allergy (Verified 06/02/18 11:28) Home Medications: Medication Instructions Recorded traMADol [Ultram 50 mg (*)] 50 mg PO Q4 #20 tab 05/25/18 hydrOXYzine HCL [Hydroxyzine HCl] 25 - 50 mg PO Q6 #15 tablet 06/02/18 Laboratory Results: Laboratory Results 06/02/18 12:50 06/02/18 12:50 06/02/18 06/02/18 06/02/18 12:50 12:50 12:50 WBC 4.69 10^3/uL 10^3/uL (3.80-9.50) RBC 4.72 10^6/uL 10^6/uL (4.18-5.33) Hgb 12.5 g/dL L g/dL (12.6-16.3) Hct 35.5 % L % (38.0-47.0) MCV 75.2 fL L fL (81.5-99.8) MCH 26.5 pg L pg (27.9-34.1) MCHC 35.2 g/dL g/dL (32.4-36.7) RDW 22.4 % H % (11.5-15.2) Plt Count 275 10^3/uL 10^3/uL (150-400) MPV TNP Neut % (Auto) 53.3 % % (39.3-74.2) Lymph % (Auto) 30.9 % % (15.0-45.0) Hancock % (Auto) 10.9 % % (4.5-13.0) Eos % (Auto) 3.0 % % (0.6-7.6) Baso % (Auto) 1.5 % % (0.3-1.7) Nucleat RBC Rel Count 0.0 % % (0.0-0.2) Absolute Neuts (auto) 2.50 10^3/uL 10^3/uL (1.70-6.50) Absolute Lymphs (auto) 1.45 10^3/uL 10^3/uL (1.00-3.00) Absolute Monos (auto) 0.51 10^3/uL 10^3/uL (0.30-0.80) Absolute Eos (auto) 0.14 10^3/uL 10^3/uL (0.03-0.40) Absolute Basos (auto) 0.07 10^3/uL 10^3/uL (0.02-0.10) Absolute Nucleated RBC 0.00 10^3/uL 10^3/uL (0-0.01) Immature Gran % 0.4 % % (0.0-1.1) Immature Gran # 0.02 10^3/uL 10^3/uL (0.00-0.10) Platelet Estimate ADEQUATE (ADEQ) Microcytic Cells 1+ H Target Cells 2+ H Elliptocytes 2+ H PT 13.8 SEC SEC (12.0-15.0) INR 1.04 (0.83-1.16) APTT 26.9 SEC SEC (23.0-38.0) Sodium 138 mEq/L mEq/L (135-145) Potassium 4.0 mEq/L mEq/L (3.5-5.2) Chloride 109 mEq/L mEq/L (97-110) Carbon Dioxide 21 mEq/l L mEq/l (22-31) Anion Gap 8 mEq/L mEq/L (6-14) BUN 13 mg/dL mg/dL (7-23) Creatinine 0.8 mg/dL mg/dL (0.6-1.0) Estimated GFR > 60 Glucose 87 mg/dL mg/dL (70-100) Calcium 9.9 mg/dL mg/dL (8.5-10.4) Total Bilirubin 21.1 mg/dL H mg/dL (0.1-1.4) Conjugated Bilirubin 18.5 mg/dL H mg/dL (0.0-0.5) Unconjugated Bilirubin 2.6 mg/dL H mg/dL (0.0-1.1) Icterus Index 19 AST 104 IU/L H IU/L (14-46) ALT 125 IU/L H IU/L (9-52) Alkaline Phosphatase 466 IU/L H IU/L (38-126) Total Protein 6.8 g/dL g/dL (6.3-8.2) Albumin 3.7 g/dL g/dL (3.5-5.0) Medications Given: Discontinued Medications Hydroxyzine HCl (Hydroxyzine Hcl) 25 mg PO EDNOW ONE Stop: 06/02/18 12:31 Last Admin: 06/02/18 13:44 Dose: 25 mg Departure - Departure Disposition: Home, Routine, Self-Care Clinical Impression: Hyperbilirubinemia Condition: Fair Instructions: Jaundice (ED) Additional Instructions: DISCHARGE INSTRUCTIONS FROM YOUR DOCTOR Thank you for visiting our emergency department today. Please keep in mind that discharge from the emergency department does not mean that there is nothing wrong - it simply means that we have not identified an emergency condition that requires further evaluation or treatment in the hospital. You should always plan to follow up with primary care for re-evaluation of your condition in the next 2-3 days. If you have been referred to a specialist, please call as soon as possible (today or tomorrow) to schedule your follow up appointment at the appropriate time. YOUR ER EVALUATION INCLUDED REPEAT LABS TODAY. YOU DO CONTINUED TO HAVE AN ELEVATED TOTAL BILIRUBIN WELL ELEVATED LIVER ENZYMES. HER COAGULATION PANEL IS NORMAL. YOU HAD A NORMAL ABDOMINAL MRI, ABDOMINAL CT SCAN, AND ABDOMINAL ULTRASOUND. I DISCUSSED HER CASE AT LENGTH WITH DR. DICK WHO IS ON-CALL FOR GI. SHE DID NOT FEEL YOU REQUIRED ANY ADDITIONAL EMERGENT LABORATORY EVALUATION OR IMAGING TODAY. YOU DO APPARENTLY HAVE A POSITIVE EBV IGM ANTIBODY TODAY. I DO NOT KNOW IF THIS IS CAUSING HER JAUNDICE. PLEASE KEEP HER APPOINTMENT WITH DR. DEVINE. PLEASE USE ATARAX IF NEEDED FOR ITCHING. RETURN TO THE EMERGENCY DEPARTMENT FOR ABDOMINAL PAIN, FEVER, VOMITING, WORSENING RASH, OR ANY OTHER CONCERNS. People present with illnesses and injuries in different ways, and it is always possible that we have missed something. You may always return for re-evaluation if symptoms worsen or if they are not improving or if you develop new/different symptoms. Again, thank you for choosing our emergency department. We hope that you feel better. Referrals: Nakia Cartwright MD [Primary Care Provider] - As per Instructions Aric Villa [Medical Doctor] - As per Instructions Prescriptions: hydrOXYzine HCL [Hydroxyzine HCl] 25 - 50 mg PO Q6 #15 tablet
[2018-06-02 15:01] VITALS: BP 122/76
== END 2018-06-02 15:00 | disposition home or self-care (01) ==
DX: E80.6 Other disorders of bilirubin metabolism (principal)

== ENCOUNTER → 2018-06-18 | Outpatient (CLI) | payer OTHER ==
[~2018-06-18] MED LIST: FLUMAZENIL 0.5 MG/5 ML MDV IVP ONE; FLUMAZENIL 0.5 MG/5 ML MDV IVP PRN; LIDOCAINE 1% 300 MG/30 ML SDV ONE; MIDAZOLAM 2 MG/2 ML VIAL IVP PRN; MIDAZOLAM 2 MG/2 ML VIAL ONE; NALOXONE HCL 0.4 MG/ML INJ IVP PRN; NALOXONE HCL 0.4 MG/ML INJ ONE; NS 1,000 ML IV SCH; ONDANSETRON 4 MG/2 ML VIAL IVP PRN; fentaNYL 100 MCG/2 ML INJ IVP PRN; fentaNYL 100 MCG/2 ML INJ ONE; oxyCODONE IR 5 MG TAB PO PRN
[2018-06-18 10:04] LABS: PLATELET COUNT 282 10^3/uL (150-400)
--- NOTE | 2018-06-18 11:11 | PDGENHP ---
History & Physical Chief Complaint: Cholestasis History of Present Illness: cholestasis Relevant Physical Exam: jaundice Cardiorespiratory Assessment: clear lungs. RRR
--- NOTE | 2018-06-18 11:12 | PDPROPOC ---
Sedation Plan of Care Sedation Plan of Care: vital signs stable, mental status noted, patient educated of risks, benefits, alternatives, patient can tolerate sedation ASA Classification: ASA 2 Planned drugs: fentanyl, midazolam Mallampati Score: Class 3 Mallampati Reference Image: Patient passed 3-3-2 rule?: Yes
--- NOTE | 2018-06-18 12:23 | PDRADPN ---
Radiology Procedure Note Date of Procedure: 06/18/18 Radiologist: Ricky Holliday Anesthesia: IV Sedation (moderate, fentanyl and versed) Pre-op Diagnosis: cholestasis Post-op Diagnosis: cholestasis Indication: elevated bilirubin Procedure: Ultrasound guided liver biopsy Finding(s): No post biopsy hematoma Inf/Abcess present in the surg proc area at time of surgery?: No Depth: Organ Space (liver) EBL: Minimal Complications: No immediate complication. Drains: Other (No drain) Specimen(s): 18 ga cores samples x3 submitted in formalin
[2018-06-18 13:05] VITALS: BP 128/69
== END ==
LOC: FIMAGING 09:16
PROVIDERS: ATTEND Internal Medicine
PROC: 0FB03ZX Excision of Liver, Percutaneous Approach, Diagnostic (ICD-10-PCS; principal; 2018-06-18 12:00)
DX: R17 Unspecified jaundice (principal); E78.79 Other disorders of bile acid and cholesterol metabolism
CPT/HCPCS: 47000; 76942; 88313; 99153; J2250; J3010; J2310

== ENCOUNTER → 2018-09-20 | Outpatient (CLI) | payer OTHER | LOC: BMCIMAGING 15:18 | PROVIDERS: ATTEND Family Medicine | DX: Z13.820 Encounter for screening for osteoporosis (principal); M81.0 Age-related osteoporosis without current pathological fracture; Z78.0 Asymptomatic menopausal state ==